=== PATIENT | male | born 1950 | race Caucasian/White ===

== ENCOUNTER 2021-11-03 21:39 | Emergency (ER) | payer SELFPAY ==
[~2021-11-03] VITALS: Ht 167.6 cm; Wt 78.0 kg
[2021-11-03] MEDS ORDERED: IPRATROPIUM BROMIDE (0.02%) 0.5MG/2.5ML NEB HHN STA (22:04)
[2021-11-03] MEDS ORDERED: PREDNISONE 20MG TABLET PO STA (22:04)
[2021-11-03] MEDS ORDERED: HYDROCODONE/ACETAMINOPHEN 5/325MG TABLET PO ONE (22:15)
[2021-11-03] MEDS ORDERED: ALBUTEROL (0.083%) 2.5MG/3ML NEB HHN SCH (22:30)
[2021-11-03 23:01] LABS: BASOPHILS % 0.6 % (0.0-2.0); EOSINOPHILS % 2.7 % (0.0-5.0); HEMOGLOBIN. 14.8 g/dL (14.0-18.0); LYMPHOCYTES % 42.6 % (20.0-50.0); MEAN CORPUSCULAR HEMOGLOBIN 33.6 pg (28.0-32.0); MEAN CORPUSCULAR VOLUME 97.7 fL (80.0-94.0); MONOCYTES % 6.9 % (2.0-8.0); NEUTROPHILS % 47.2 % (40.0-76.0); PLATELET 177 x1000/uL (130-400); RED CELL DISTRIBUTION WIDTH 13.2 % (11.6-14.6)
[2021-11-03 23:13] LABS: CHLORIDE 107 mEq/L (98-107)
[2021-11-03] MEDS ORDERED: PREDNISONE 20MG TABLET PO NR (23:15)
[2021-11-03 23:20] LABS: ETHANOL BLOOD 289 mg/dL
[2021-11-03 23:36] LABS: *AMPHETAMINES SCREEN URINE NEGATIVE (NEGATIVE); *BARBITURATES SCREEN URINE NEGATIVE (NEGATIVE); *BENZODIAZEPINES SCREEN URINE NEGATIVE (NEGATIVE); *COCAINE SCREEN URINE NEGATIVE (NEGATIVE); CANNABINOID URINE SCREEN NEGATIVE (NEGATIVE); METHADONE URINE SCREEN NEGATIVE (NEGATIVE); OPIATES URINE SCREEN NEGATIVE (NEGATIVE); PHENCYCLIDINE URINE SCREEN NEGATIVE (NEGATIVE)
[2021-11-04 05:30] VITALS: BP 128/74
[2021-11-04] MEDS ORDERED: GABAPENTIN 300MG CAPSULE PO SCH (09:30)
[2021-11-04] MEDS ORDERED: CHLORDIAZEPOXIDE 25MG CAPSULE PO SCH (09:30)
== END 2021-11-04 10:15 | disposition home or self-care (01) ==
LOC: ER 21:39
DX: M25.571 Pain in right ankle and joints of right foot (principal); R45.851 Suicidal ideations; J44.9 Chronic obstructive pulmonary disease, unspecified; F17.290 Nicotine dependence, other tobacco product, uncomplicated
CPT/HCPCS: 36415; 73610; 80048; 80305; 80307; 80320; 80329; 85025; 99285; J7512; G0480